=== PATIENT | male | born 2000 | race Caucasian/White ===

== ENCOUNTER 2019-01-11 07:04 | Outpatient (CLI) | payer OTHER ==
--- NOTE | 2019-01-11 08:34 | Ultrasound Report ---
ULTRASOUND RENAL BILATERAL HISTORY: Other secondary hypertension. TECHNIQUE: transabdominal ultrasound with color Doppler interrogation. COMPARISON: none. FINDINGS: The right kidney measures 9.7 x 5.5 x 5.7cm. Right renal cortex: 1.7cm. The left kidney measures 10.7 x 5.6 x 5.9cm. Left renal cortex: 1.8cm. The kidneys are normal size, contour and position. There is increased renal cortical echotexture bilaterally consistent with nonspecific renal parenchymal disease. Corticomedullary differentiation is preserved. Spectral Doppler waveforms demonstrate arterial flow to both kidneys. The resistive index on the right side is mildly elevated with RI = 0.72. The resistive index on the left side is within normal limits measuring 0.56. No evidence for cystic disease, mass, nephrolithiasis, hydronephrosis or perinephric fluid. The views of the bladder and the region of the ureters appear normal. IMPRESSION: Renal parenchymal disease. Mildly elevated resistive index on the right side as described.
== END 2019-01-11 07:05 | disposition home or self-care (01) ==
LOC: US 07:04
PROVIDERS: ATTEND Internal Medicine
DX: N18.9 Chronic kidney disease, unspecified (principal); I15.8 Other secondary hypertension
CPT/HCPCS: 76770